=== PATIENT | female | born 1940 | race Caucasian/White ===

== ENCOUNTER → 2018-12-16 | Outpatient (CLI) | payer MEDICARE | END | disposition home or self-care (01) | LOC: CFH 13:32 | PROVIDERS: ATTEND Internal Medicine | DX: J43.9 Emphysema, unspecified (principal); E04.1 Nontoxic single thyroid nodule; J98.19 Other pulmonary collapse; J47.9 Bronchiectasis, uncomplicated | CPT/HCPCS: 71250 ==

== ENCOUNTER 2019-06-09 06:45 | Observation (INO) | payer MEDICARE ==
[~2019-06-09] VITALS: Ht 157.5 cm; Wt 52.6 kg
[2019-06-09] MEDS ORDERED: DILTIAZEM 5 MG/ML, 5ML IVPush ONE (07:00)
[2019-06-09] MEDS ORDERED: DILTIAZEM 5 MG/ML, 5ML ONE (07:12)
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
[2019-06-09] MEDS ORDERED: PLEASE ENTER ALLERGIES MC SCH (07:30)
[2019-06-09 07:31] LABS: BASOPHILS # (AUTO) 0.05 x10^3/uL (0-0.1); BASOPHILS % (AUTO) 1 % (0-1); EOSINOPHILS % (AUTO) 1 % (1-7); LYMPHOCYTES # (AUTO) 1.56 x10^3/uL (1-3.4); LYMPHOCYTES % (AUTO) 21 % (22-44); MD NO; MEAN CORPUSCULAR HEMOGLOBIN 30.6 pg (27.0-34.8); MEAN CORPUSCULAR HGB CONC 33.2 g/dL (32.4-35.8); MEAN CORPUSCULAR VOLUME 92.2 fL (80-100); MEAN PLATELET VOLUME 7.6 fL (7.4-10.4); MONOCYTES # (AUTO) 0.52 x10^3/uL (0.2-0.8); MONOCYTES % (AUTO) 7 % (2-9); NEUTROPHILS # (AUTO) 5.35 x10^3/uL (1.8-6.8); NEUTROPHILS % (AUTO) 71 % (42-75); PLATELET COUNT 268 x10^3/uL (130-400); RED BLOOD COUNT 4.96 x10^6/uL (3.82-5.3); RED CELL DISTRIBUTION WIDTH 13.7 % (9.6-15.2)
--- NOTE | 2019-06-09 07:35 | NUR ---
PT TO IMAGING
[2019-06-09 07:36] LABS: INTERNATIONAL NORMALIZED RATIO 1.04 (0.93-1.1); PROTHROMBIN TIME 10.9 Seconds (9.6-11.5)
[2019-06-09 07:37] LABS: ALANINE AMINOTRANSFERASE 33 U/L (12-78); ALBUMIN 3.5 g/dL (3.4-5.0); ANION GAP 9 mmol/L (5-15); CALCIUM 8.4 mg/dL (8.5-10.1); CHLORIDE 104 mmol/L (98-107); CREATININE 0.92 mg/dL (0.55-1.02)
[2019-06-09 07:47] LABS: ALKALINE PHOSPHATASE 97 U/L (45-117); BILIRUBIN,TOTAL 0.9 mg/dL (0.2-1.0); TOTAL PROTEIN 7.3 g/dL (6.4-8.2)
[2019-06-09] MEDS ORDERED: LORazepam 2 MG/ML, 1ML ONE (08:25)
--- NOTE | 2019-06-09 08:28 | NUR ---
PT APPEARS AXIOUS IS TEARFUL ABOUT BEING IN HOSPITAL, STATES SHE IS CONCERNED ABOUT HER . ERMD UPDATED ORDERS RECIEVED FOR ANXIETY MEDICATIONS, WILL MEDICATE PER MAR
[2019-06-09] MEDS ORDERED: LORazepam 2 MG/ML, 1ML IVPush ONE (08:30)
--- NOTE | 2019-06-09 09:03 | NUR ---
REPORT GIVEN TO DEVIN HINKLE
[2019-06-09 09:19] VITALS: BP 101/70
[2019-06-09] MEDS ORDERED: SODIUM CHLORIDE 0.9% 1,000ML IVBOLUS ONE ×2 (10:00→16:30)
[2019-06-09] MEDS ORDERED: ACETAMINOPHEN 325 MG TABLET PO PRN (10:30)
[2019-06-09] MEDS ORDERED: ONDANSETRON 2MG/ML, 2ML IVPush PRN (10:30)
[2019-06-09] MEDS ORDERED: ONDANSETRON ODT 4 MG PO PRN (10:30)
[2019-06-09] MEDS ORDERED: hydrALAzine 20 MG/ML, 1ML IVPush PRN (10:30)
[2019-06-09] MEDS ORDERED: DOCUSATE 100 MG CAPSULE PO PRN (10:30)
[2019-06-09] MEDS ORDERED: TEMAZEPAM 15 MG CAPSULE PO PRN (10:30)
[2019-06-09] MEDS ORDERED: BUTALB/APAP/CAFFEINE 50MG/325MG/40MG PO PRN ×2 (10:30)
[2019-06-09 11:35] LABS: FREE T4 (FREE THYROXINE) 1.74 ng/dL (0.76-1.46)
[2019-06-09] MEDS ORDERED: LEVO50TA5 PO (11:49)
[2019-06-09] MEDS ORDERED: SERT25TA3 PO (11:51)
[2019-06-09] MEDS ORDERED: ESTR2TAB PO (11:51)
[2019-06-09] MEDS ORDERED: DIAZ2TAB3 PO (11:52)
[2019-06-09 13:34] VITALS: BP 96/60
[2019-06-09] MEDS ORDERED: DIAZEPAM 2 MG TABLET PO PRN (16:30)
[2019-06-09] MEDS ORDERED: DIAZEPAM 5 MG TABLET PO PRN (16:30)
[2019-06-09] MEDS ORDERED: RIVAROXABAN 15 MG TABLET PO SCH (17:00)
[2019-06-09 19:17] VITALS: BP 103/61
[2019-06-10 00:31] VITALS: BP 102/59
[2019-06-10 06:50] VITALS: BP 108/68
[2019-06-10 07:16] LABS: ANION GAP 7 mmol/L (5-15); CALCIUM 8.1 mg/dL (8.5-10.1); CHLORIDE 110 mmol/L (98-107); CREATININE 0.93 mg/dL (0.55-1.02)
[2019-06-10 07:21] LABS: BASOPHILS # (AUTO) 0.03 x10^3/uL (0-0.1); BASOPHILS % (AUTO) 0 % (0-1); EOSINOPHILS # (AUTO) 0.18 x10^3/uL (0-0.4); EOSINOPHILS % (AUTO) 3 % (1-7); LYMPHOCYTES # (AUTO) 2.46 x10^3/uL (1-3.4); LYMPHOCYTES % (AUTO) 36 % (22-44); MD NO; MEAN CORPUSCULAR HEMOGLOBIN 30.2 pg (27.0-34.8); MEAN CORPUSCULAR HGB CONC 32.3 g/dL (32.4-35.8); MEAN CORPUSCULAR VOLUME 93.5 fL (80-100); MEAN PLATELET VOLUME 7.7 fL (7.4-10.4); MONOCYTES # (AUTO) 0.44 x10^3/uL (0.2-0.8); MONOCYTES % (AUTO) 7 % (2-9); NEUTROPHILS # (AUTO) 3.76 x10^3/uL (1.8-6.8); NEUTROPHILS % (AUTO) 55 % (42-75); PLATELET COUNT 241 x10^3/uL (130-400); RED BLOOD COUNT 4.15 x10^6/uL (3.82-5.3); RED CELL DISTRIBUTION WIDTH 13.9 % (9.6-15.2)
[2019-06-10] MEDS ORDERED: ESTRADIOL 0.5 MG TABLET PO SCH (09:00)
[2019-06-10] MEDS ORDERED: SERTRALINE 50MG TABLET PO SCH (09:00)
[2019-06-10] MEDS ORDERED: LEVOTHYROXINE 50 MCG TABLET PO SCH (09:00)
== END 2019-06-10 12:45 | disposition home or self-care (01) ==
LOC: ED 07:55 → INTOOBSV 08:42 → 5SO 08:42 → DCLOUNGE 06-10 12:24
PROVIDERS: ADMIT Emergency Medicine; ATTEND Family Medicine
DX: R55 Syncope and collapse (principal); I48.91 Unspecified atrial fibrillation; E03.9 Hypothyroidism, unspecified; E78.5 Hyperlipidemia, unspecified; F41.9 Anxiety disorder, unspecified; G25.81 Restless legs syndrome; J43.9 Emphysema, unspecified; G43.109 Migraine with aura, not intractable, without status migrainosus; M25.562 Pain in left knee
CPT/HCPCS: 36415; 71045; 73564; 80048; 80053; 83735; 84100; 84439; 84443; 84481; 85025; 85610; 85730; 93005; 93306; 96360; 96361; 96374; 96375; 99285; G0378; J2060; J7030

== ENCOUNTER 2019-07-03 08:54 | Inpatient (IN) | payer MEDICARE ==
[~2019-07-03] VITALS: Ht 157.5 cm; Wt 56.1 kg
[~2019-07-03 08:54] MED LIST: DIAZ2TAB3 PO; ESTR2TAB PO; LEVO50TA5 PO; SERT25TA3 PO
[2019-07-03] MEDS ORDERED: DILTIAZEM 5 MG/ML, 5ML ONE ×3 (09:28→10:55)
[2019-07-03] MEDS ORDERED: SODIUM CHLORIDE 0.9% 1,000ML IVBOLUS ONE (09:30)
[2019-07-03] MEDS ORDERED: SODIUM CHLORIDE FLUSH 10ML SYR IVF ONE (09:30)
[2019-07-03] MEDS ORDERED: DILTIAZEM 5 MG/ML, 5ML IV ONE ×2 (09:30→11:00)
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
[2019-07-03 09:59] LABS: BASOPHILS # (AUTO) 0.06 x10^3/uL (0-0.1); BASOPHILS % (AUTO) 1 % (0-1); EOSINOPHILS # (AUTO) 0.18 x10^3/uL (0-0.4); EOSINOPHILS % (AUTO) 2 % (1-7); LYMPHOCYTES # (AUTO) 3.76 x10^3/uL (1-3.4); LYMPHOCYTES % (AUTO) 30 % (22-44); MD NO; MEAN CORPUSCULAR HEMOGLOBIN 30.8 pg (27.0-34.8); MEAN CORPUSCULAR HGB CONC 33.5 g/dL (32.4-35.8); MEAN PLATELET VOLUME 7.7 fL (7.4-10.4); MONOCYTES % (AUTO) 6 % (2-9); NEUTROPHILS # (AUTO) 7.79 x10^3/uL (1.8-6.8); NEUTROPHILS % (AUTO) 62 % (42-75); PLATELET COUNT 342 x10^3/uL (130-400); RED BLOOD COUNT 4.65 x10^6/uL (3.82-5.3); RED CELL DISTRIBUTION WIDTH 13.7 % (9.6-15.2)
[2019-07-03 10:09] LABS: ALBUMIN 3.4 g/dL (3.4-5.0); ANION GAP 9 mmol/L (5-15); CALCIUM 8.9 mg/dL (8.5-10.1); CHLORIDE 105 mmol/L (98-107)
[2019-07-03 10:16] LABS: ALANINE AMINOTRANSFERASE 23 U/L (12-78); ALKALINE PHOSPHATASE 83 U/L (45-117); BILIRUBIN,TOTAL 1.2 mg/dL (0.2-1.0); CREATININE 0.85 mg/dL (0.55-1.02); T4 (THYROXINE) 14.5 mcg/dL (4.8-13.9); TOTAL PROTEIN 7.2 g/dL (6.4-8.2); TROPONIN I < 0.015 ng/mL (0.000-0.045)
--- NOTE | 2019-07-03 10:16 | NUR ---
PT AMUBLATED TO BATHROOM W STEADY GATE. UA SAMPLE. MEDICATED W 10 MG DILT PER ORDERS. HR AFIB 120-130
[2019-07-03 10:26] LABS: MICROSCOPIC NOT IND
[2019-07-03 10:29] LABS: CULTURE INDICATED? NO
[2019-07-03] MEDS ORDERED: DILTIAZEM 5 MG/ML, 5ML IVPush ONE (10:30)
--- NOTE | 2019-07-03 11:06 | NUR ---
BP 92/57. MD ORDERED NOT ADMIN 20 MG OF DILT. HR AFIB 120-130. POC OF ADMIT. PT AMBULATED TO BATHROOM , GIVEN WARM BLANKET
--- NOTE | 2019-07-03 11:21 | NUR ---
[facility] AT BEDSIDE
[2019-07-03] MEDS ORDERED: DIAZEPAM 5 MG TABLET PO PRN (11:30)
[2019-07-03] MEDS: APIXABAN 2.5 MG TABLET PO SCH ×2 (11:30→21:47)
[2019-07-03] MEDS ORDERED: DILTIAZEM 125 MG in SODIUM CHLORIDE 0.9% 100 ML IV SCH (11:30)
[2019-07-03] MEDS ORDERED: ENOXAPARIN 60 MG/0.6 ML SQ SCH (11:30)
[2019-07-03] MEDS ORDERED: SODIUM CHLORIDE FLUSH 10ML SYR IVF PRN (11:30)
[2019-07-03] MEDS ORDERED: APIXABAN 5 MG TABLET ONE (11:34)
[2019-07-03] MEDS ORDERED: ENOXAPARIN 60 MG/0.6 ML ONE (11:34)
[2019-07-03] MEDS ORDERED: METOPROLOL TARTRATE 25 MG TABLET ONE (11:34)
[2019-07-03] MEDS: METOPROLOL TARTRATE 25 MG TABLET PO SCH ×2 (11:39→17:53)
[2019-07-03] MEDS ORDERED: ACETAMINOPHEN 325 MG TABLET PO PRN (12:00)
[2019-07-03] MEDS ORDERED: hydrALAzine 20 MG/ML, 1ML IVPush PRN (12:00)
[2019-07-03] MEDS ORDERED: ONDANSETRON 2MG/ML, 2ML IVPush PRN (12:00)
[2019-07-03] MEDS ORDERED: BACLOFEN 10 MG TABLET PO PRN (12:00)
[2019-07-03] MEDS ORDERED: ONDANSETRON ODT 4 MG PO PRN (12:00)
[2019-07-03 13:12] VITALS: BP 99/65
[2019-07-03] MEDS: D5%-0.45NACL+KCL 20MEQ 1,000 ML IV SCH (15:52)
[2019-07-03 17:23] LABS: TROPONIN I < 0.015 ng/mL (0.000-0.045)
[2019-07-03 21:51] VITALS: BP 124/84
[2019-07-03 23:04] LABS: TROPONIN I < 0.015 ng/mL (0.000-0.045)
[2019-07-04 01:23] VITALS: BP 102/59
[2019-07-04] MEDS: D5%-0.45NACL+KCL 20MEQ 1,000 ML IV SCH ×2 (01:50→13:21)
[2019-07-04 05:17] VITALS: BP 107/72
[2019-07-04] MEDS: METOPROLOL TARTRATE 25 MG TABLET PO SCH ×2 (05:20→21:00)
[2019-07-04] MEDS: LEVOTHYROXINE 50 MCG TABLET PO SCH (05:20)
[2019-07-04 05:37] LABS: BASOPHILS # (AUTO) 0.03 x10^3/uL (0-0.1); BASOPHILS % (AUTO) 0 % (0-1); EOSINOPHILS # (AUTO) 0.31 x10^3/uL (0-0.4); EOSINOPHILS % (AUTO) 3 % (1-7); LYMPHOCYTES # (AUTO) 3.29 x10^3/uL (1-3.4); LYMPHOCYTES % (AUTO) 35 % (22-44); MD NO; MEAN CORPUSCULAR HEMOGLOBIN 30.4 pg (27.0-34.8); MEAN CORPUSCULAR HGB CONC 32.8 g/dL (32.4-35.8); MEAN CORPUSCULAR VOLUME 92.6 fL (80-100); MEAN PLATELET VOLUME 7.7 fL (7.4-10.4); MONOCYTES # (AUTO) 0.73 x10^3/uL (0.2-0.8); MONOCYTES % (AUTO) 8 % (2-9); NEUTROPHILS # (AUTO) 5.04 x10^3/uL (1.8-6.8); NEUTROPHILS % (AUTO) 54 % (42-75); PLATELET COUNT 287 x10^3/uL (130-400); RED BLOOD COUNT 4.12 x10^6/uL (3.82-5.3); RED CELL DISTRIBUTION WIDTH 13.9 % (9.6-15.2)
[2019-07-04 05:45] LABS: ANION GAP 4 mmol/L (5-15); CALCIUM 8.1 mg/dL (8.5-10.1); CHLORIDE 110 mmol/L (98-107); CREATININE 0.77 mg/dL (0.55-1.02)
[2019-07-04] MEDS: APIXABAN 2.5 MG TABLET PO SCH ×2 (08:59→20:41)
[2019-07-04] MEDS: SERTRALINE 50MG TABLET PO SCH (08:59)
[2019-07-04 09:38] VITALS: BP 103/57
[2019-07-04] MEDS ORDERED: POLYETHYLENE GLYCOL 17 GM PACKET PO PRN (14:00)
[2019-07-04] MEDS ORDERED: METOPROLOL TARTRATE 25 MG TABLET PO SCH (14:00)
[2019-07-04 16:30] VITALS: BP 107/63
[2019-07-04 20:38] VITALS: BP 100/66
[2019-07-04] MEDS ORDERED: DOCUSATE 100 MG CAPSULE PO SCH (21:00)
[2019-07-05] MEDS: D5%-0.45NACL+KCL 20MEQ 1,000 ML IV SCH (00:05)
[2019-07-05 02:44] VITALS: BP 109/72
[2019-07-05 05:13] LABS: ANION GAP 3 mmol/L (5-15); CALCIUM 8.7 mg/dL (8.5-10.1); CHLORIDE 110 mmol/L (98-107)
[2019-07-05] MEDS: LEVOTHYROXINE 50 MCG TABLET PO SCH (05:54)
[2019-07-05 07:07] VITALS: BP 98/58
[2019-07-05] MEDS ORDERED: APIX2.5T PO (08:58)
[2019-07-05] MEDS ORDERED: METO25TA91 PO (08:58)
[2019-07-05] MEDS: APIXABAN 2.5 MG TABLET PO SCH (09:23)
[2019-07-05] MEDS: METOPROLOL TARTRATE 25 MG TABLET PO SCH (09:24)
[2019-07-05] MEDS: SERTRALINE 50MG TABLET PO SCH (09:24)
== END 2019-07-05 10:23 | disposition home or self-care (01) | DRG 309 ==
LOC: ED 10:17 → EDIP 11:11 → 5SO 12:49 → DCLOUNGE 07-05 10:16
PROVIDERS: ADMIT Hospitalist; ATTEND Internal Medicine
DX: I48.0 Paroxysmal atrial fibrillation (principal); D68.69 Other thrombophilia; D72.829 Elevated white blood cell count, unspecified; J43.9 Emphysema, unspecified; E03.9 Hypothyroidism, unspecified; E78.5 Hyperlipidemia, unspecified; G25.81 Restless legs syndrome; Z77.22 Contact with and (suspected) exposure to environmental tobacco smoke (acute) (chronic); Z87.442 Personal history of urinary calculi; Z90.710 Acquired absence of both cervix and uterus
CPT/HCPCS: 36415; 71045; 80048; 80053; 81003; 83735; 84100; 84436; 84443; 84484; 85025; 92960; 93005; 96361; 96374; 96375; 99291; G0378; J3480; J7030

== ENCOUNTER → 2019-09-30 | Outpatient (CLI) | payer MEDICARE ==
[~2019-09-30] MED LIST changes: +AMIO200T42 PO; +APIX2.5T PO; +METO25TA91 PO
[2019-09-30 09:27] LABS: BASOPHILS # (AUTO) 0.02 x10^3/uL (0-0.1); BASOPHILS % (AUTO) 0 % (0-1); EOSINOPHILS # (AUTO) 0.07 x10^3/uL (0-0.4); EOSINOPHILS % (AUTO) 1 % (1-7); LYMPHOCYTES # (AUTO) 2.16 x10^3/uL (1-3.4); LYMPHOCYTES % (AUTO) 34 % (22-44); MD NO; MEAN CORPUSCULAR HEMOGLOBIN 30.3 pg (27.0-34.8); MEAN CORPUSCULAR HGB CONC 32.6 g/dL (32.4-35.8); MEAN PLATELET VOLUME 7.2 fL (7.4-10.4); MONOCYTES # (AUTO) 0.54 x10^3/uL (0.2-0.8); MONOCYTES % (AUTO) 9 % (2-9); NEUTROPHILS # (AUTO) 3.63 x10^3/uL (1.8-6.8); NEUTROPHILS % (AUTO) 57 % (42-75); PLATELET COUNT 248 x10^3/uL (130-400); RED BLOOD COUNT 4.32 x10^6/uL (3.82-5.3); RED CELL DISTRIBUTION WIDTH 13.9 % (9.6-15.2)
[2019-09-30 09:39] LABS: ALBUMIN 3.4 g/dL (3.4-5.0); ANION GAP 5 mmol/L (5-15); CALCIUM 9.1 mg/dL (8.5-10.1); CHLORIDE 105 mmol/L (98-107)
[2019-09-30 09:51] LABS: ALANINE AMINOTRANSFERASE 19 U/L (12-78); ALKALINE PHOSPHATASE 74 U/L (45-117); BILIRUBIN,TOTAL 0.9 mg/dL (0.2-1.0); CREATININE 0.86 mg/dL (0.55-1.02); T4 (THYROXINE) 16.6 mcg/dL (4.8-13.9); TOTAL PROTEIN 7.1 g/dL (6.4-8.2)
== END | disposition home or self-care (01) ==
LOC: RAD 08:56
PROVIDERS: ATTEND Internal Medicine Cardiovascular Disease
DX: J98.4 Other disorders of lung (principal); I48.91 Unspecified atrial fibrillation; J44.9 Chronic obstructive pulmonary disease, unspecified; E03.9 Hypothyroidism, unspecified
CPT/HCPCS: 36415; 71046; 80053; 84436; 84443; 84481; 85025

== ENCOUNTER → 2019-12-27 | Outpatient (CLI) | payer MEDICARE ==
[2019-12-27 07:49] LABS: ANION GAP 3 mmol/L (5-15); CALCIUM 9.3 mg/dL (8.5-10.1); CHLORIDE 105 mmol/L (98-107); CHOLESTEROL, TOTAL 260 mg/dL (140-239); CREATININE 1.06 mg/dL (0.55-1.02)
[2019-12-27 07:59] LABS: CHOL/HDL RATIO 2.9; FREE T4 (FREE THYROXINE) 2.02 ng/dL (0.76-1.46); HDL CHOL % 34 % (28-40); HDL CHOLESTEROL (DIRECT) 89 mg/dL (40-60); LDL CHOLESTEROL,CALCULATED 151 mg/dL (54-169); LDL/HDL RATIO 1.7 (0.5-3.0); TRIGLYCERIDES 100 mg/dL (50-200); VLDL CHOLESTEROL 20 mg/dL (0-25)
== END | disposition home or self-care (01) ==
LOC: LAB 07:24
PROVIDERS: ATTEND Registered Nurse
DX: E03.9 Hypothyroidism, unspecified (principal); E78.00 Pure hypercholesterolemia, unspecified; I48.91 Unspecified atrial fibrillation; R03.0 Elevated blood-pressure reading, without diagnosis of hypertension
CPT/HCPCS: 36415; 80048; 80061; 84439; 84443; 84480

== ENCOUNTER → 2020-03-01 | Outpatient (CLI) | payer MEDICARE | END | disposition home or self-care (01) | LOC: CFH 11:38 | PROVIDERS: ATTEND Internal Medicine Cardiovascular Disease | DX: J98.11 Atelectasis (principal); E03.9 Hypothyroidism, unspecified; I48.91 Unspecified atrial fibrillation | CPT/HCPCS: 71046 ==

== ENCOUNTER → 2020-03-31 | Outpatient (CLI) | payer MEDICARE ==
[~2020-03-31] MED LIST changes: +OMNIPAQUE 350 MG/ML, 75ML BOTTLE ONE
== END | disposition home or self-care (01) ==
LOC: CFH 09:02
PROVIDERS: ATTEND Internal Medicine Cardiovascular Disease
DX: J47.9 Bronchiectasis, uncomplicated (principal); J98.4 Other disorders of lung; J98.11 Atelectasis; E04.1 Nontoxic single thyroid nodule; I25.10 Atherosclerotic heart disease of native coronary artery without angina pectoris
CPT/HCPCS: 71260; Q9967

== ENCOUNTER 2020-09-25 12:37 | Outpatient (CLI) | payer MEDICARE ==
[~2020-09-25 12:37] MED LIST changes: -OMNIPAQUE 350 MG/ML, 75ML BOTTLE ONE; +SERT-331 PO; -SERT25TA3 PO
== END 2020-09-25 23:59 | disposition home or self-care (01) ==
LOC: CFH 12:37
PROVIDERS: ATTEND Registered Nurse
DX: I08.8 Other rheumatic multiple valve diseases (principal); I48.91 Unspecified atrial fibrillation
CPT/HCPCS: 93306

== ENCOUNTER → 2020-12-27 | Outpatient (CLI) | payer MEDICARE | END | disposition home or self-care (01) | LOC: CFH 08:51 | PROVIDERS: ATTEND Internal Medicine Cardiovascular Disease | DX: J98.4 Other disorders of lung (principal); J44.9 Chronic obstructive pulmonary disease, unspecified; E03.9 Hypothyroidism, unspecified; I48.91 Unspecified atrial fibrillation | CPT/HCPCS: 71046 ==

== ENCOUNTER 2021-02-12 09:40 | Outpatient (CLI) | payer MEDICARE | END 2021-02-12 23:59 | disposition home or self-care (01) | LOC: LAB 09:40 | PROVIDERS: ATTEND Internal Medicine Cardiovascular Disease | DX: Z02.9 Encounter for administrative examinations, unspecified (principal) ==

== ENCOUNTER 2021-02-12 09:45 | Outpatient (CLI) | payer MEDICARE ==
[2021-02-12 10:12] LABS: BASOPHILS % (AUTO) 1 % (0-1); EOSINOPHILS % (AUTO) 2 % (1-7); LYMPHOCYTES % (AUTO) 33 % (22-44); MEAN CORPUSCULAR HEMOGLOBIN 31.3 pg (27.0-34.8); MEAN CORPUSCULAR HGB CONC 33.8 g/dL (32.4-35.8); MEAN PLATELET VOLUME 7.1 fL (7.4-10.4); MONOCYTES % (AUTO) 9 % (2-9); NEUTROPHILS % (AUTO) 56 % (42-75); PLATELET COUNT 246 x10^3/uL (130-400); RED BLOOD COUNT 4.36 x10^6/uL (3.82-5.3); RED CELL DISTRIBUTION WIDTH 13.3 % (9.6-15.2)
[2021-02-12 10:35] LABS: ALANINE AMINOTRANSFERASE 19 U/L (12-78); ALKALINE PHOSPHATASE 92 U/L (45-117); ANION GAP 6 mmol/L (5-15); BILIRUBIN,TOTAL 1.3 mg/dL (0.2-1.0); CALCIUM 8.8 mg/dL (8.5-10.1); CHLORIDE 99 mmol/L (98-107); CREATININE 0.79 mg/dL (0.55-1.02); TOTAL PROTEIN 7.3 g/dL (6.4-8.2)
[2021-02-12 10:36] LABS: ALBUMIN 3.7 g/dL (3.4-5.0); CHOL/HDL RATIO 2.6; CHOLESTEROL, TOTAL 226 mg/dL (140-239); HDL CHOL % 39 % (28-40); HDL CHOLESTEROL (DIRECT) 88 mg/dL (40-60); LDL CHOLESTEROL,CALCULATED 126 mg/dL (54-169); LDL/HDL RATIO 1.4 (0.5-3.0); TRIGLYCERIDES 62 mg/dL (50-200); VLDL CHOLESTEROL 12 mg/dL (0-25)
== END 2021-02-12 23:59 | disposition home or self-care (01) ==
LOC: LAB 09:45 → RAD 23:59
PROVIDERS: ATTEND Family Medicine
DX: M17.11 Unilateral primary osteoarthritis, right knee (principal); R79.9 Abnormal finding of blood chemistry, unspecified; M25.561 Pain in right knee; M25.552 Pain in left hip
CPT/HCPCS: 36415; 80053; 80061; 85025